=== PATIENT | female | born 1965 | race Caucasian/White ===

== ENCOUNTER → 2016-12-17 | Outpatient (CLI) | payer OTHER ==
[2013-12-17 20:00] VITALS: BP 138/76
[2016-12-17 13:13] LABS: BASO # 0.1 x10^3/uL (0.0-0.2); BASO % 1 % (0-3); EOS % 1 % (0-3); HEMATOCRIT 44.9 % (36.0-47.0); HEMOGLOBIN 15.1 g/dL (12.0-15.5); LYMPH # 2.2 x10^3/uL (1.0-4.8); LYMPH % 33 % (24-48); MEAN CORPUSCULAR HEMOGLOBIN 32 pg (25-35); MEAN CORPUSCULAR HGB CONC 34 g/dL (31-37); MEAN CORPUSCULAR VOLUME 95 fL (79-100); MONO % 9 % (0-9); NEUT % 56 % (31-73); PLATELET COUNT 183 x10^3/uL (140-400); RED BLOOD COUNT 4.71 x10^6/uL (3.50-5.40); RED CELL DISTRIBUTION WIDTH 13.3 % (11.5-14.5)
[2016-12-17 13:17] LABS: WHITE BLOOD COUNT 6.8 x10^3/uL (4.0-11.0)
[2016-12-18 05:19] LABS: RHEUMATOID FACTOR 13.4 IU/mL (0.0-13.9)
== END | disposition home or self-care (01) ==
LOC: LAB 12:46
PROVIDERS: ATTEND Physical Medicine & Rehabilitation
DX: M79.1 Myalgia (principal)
CPT/HCPCS: 36415; 85027; 85651; 86140; 86431

== ENCOUNTER → 2017-03-17 | Outpatient (CLI) | payer BC ==
[2013-12-17 20:00] VITALS: BP 138/76
--- NOTE | 2017-03-17 12:08 | KCIC ---
Bilateral digital screening mammograms: Reason for examination: Routine screening. Comparison is made to previous studies dated 01/22/2016 and 01/18/2015. Interpretation was made with the benefit of CAD. The skin and nipples show no abnormalities. No abnormal axillary lymph nodes are seen. The breast parenchyma shows scattered fibroglandular density. (Breast density: Category B.) There continues to be nodule with biopsy clip at the 10:00 C position of the right breast. There are no new dominant masses, suspicious calcifications or architectural distortions. Impression: No evidence of malignancy. Recommend routine screening. BI-RADS Category 2: Benign. "Our facility is accredited by the [employer] Mammography [employer]." This patient's information has been entered into a reminder system for the patient to be notified with the results of her examination and a target date for the next mammogram. Electronically signed by: Natalee Soto MD (03/17/2017 12:05 PM) [id number]
== END | disposition home or self-care (01) ==
LOC: KCIC MAMMO 09:43
PROVIDERS: ATTEND Obstetrics & Gynecology
DX: Z12.31 Encounter for screening mammogram for malignant neoplasm of breast (principal); N63 Unspecified lump in breast
CPT/HCPCS: G0202; 77067

== ENCOUNTER → 2019-04-05 | Outpatient (CLI) | payer BC ==
[2013-12-17 20:00] VITALS: BP 138/76
--- NOTE | 2019-04-05 16:13 | KCIC ---
Bilateral diagnostic digital mammograms: Reason for examination: Left breast pain and swelling lateral and superiorly for 3 weeks.. Comparison is made to previous studies dated 03/17/2017 and 01/22/2016. Interpretation was made with the benefit of CAD. The skin and nipples show no abnormalities. No abnormal axillary lymph nodes are seen. The breast parenchyma shows scattered fibroglandular density. (Breast density: Category B.) There continues to be a small nodule contained a biopsy clip in the 10:00 C position of the right breast. There are no new dominant masses, suspicious calcifications or architectural distortions. Impression: No evidence of malignancy. Ultrasound to follow. BI-RADS Category 0: Incomplete. Needs additional imaging evaluation. Left breast ultrasound: Left whole breast ultrasound including evaluation of all 4 quadrants and the retroareolar and axillary regions of the left breast was performed. There are no cystic or solid nodules. No abnormal appearing lymph nodes are seen in the axilla. IMPRESSION: No focal abnormality seen sonographically in the left breast. Recommend routine mammographic follow-up. BI-RADS Category 2: Benign. "Our facility is accredited by the [employer] Mammography Program." This patient's information has been entered into a reminder system for the patient to be notified with the results of her examination and a target date for the next mammogram. Electronically signed by: Natalee Soto MD (04/05/2019 4:10 PM) [facility] [id number]
== END | disposition home or self-care (01) ==
LOC: KCIC MAMMO 12:49
PROVIDERS: ATTEND Obstetrics & Gynecology
DX: N63.11 Unspecified lump in the right breast, upper outer quadrant (principal)
CPT/HCPCS: 76641; 77066